=== PATIENT | male | born 1995 | race Caucasian/White ===

== ENCOUNTER 2018-01-19 07:31 | Emergency (ER) | payer OTHER ==
[2018-01-19] MEDS ORDERED: NS 1,000 ML IV ONE (07:37)
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
[2018-01-19] MEDS ORDERED: HYDROmorphONE/DILAUDID 1 MG/ML INJ ONE (07:41)
[2018-01-19] MEDS ORDERED: IOPAMIDOL (ISOVUE-300) 100 ML BTL ONE (07:42)
[2018-01-19] MEDS ORDERED: HYDROmorphONE/DILAUDID 1 MG/ML INJ IVP ONE ×2 (08:02→09:33)
[2018-01-19 08:06] LABS: PLATELET COUNT 273 10^3/uL (150-400)
[2018-01-19 08:14] LABS: INR 1.06 (0.83-1.16)
[2018-01-19 11:15] VITALS: BP 110/73
== END 2018-01-19 11:16 | disposition home or self-care (01) ==
DX: S20.212A Contusion of left front wall of thorax, initial encounter (principal); F10.920 Alcohol use, unspecified with intoxication, uncomplicated; S00.31XA Abrasion of nose, initial encounter; S50.312A Abrasion of left elbow, initial encounter; S60.512A Abrasion of left hand, initial encounter; S80.212A Abrasion, left knee, initial encounter; S30.811A Abrasion of abdominal wall, initial encounter; S20.91XA Abrasion of unspecified parts of thorax, initial encounter; E86.9 Volume depletion, unspecified; V18.4XXA Pedal cycle driver injured in noncollision transport accident in traffic accident, initial encounter; Y92.89 Other specified places as the place of occurrence of the external cause; Y99.8 Other external cause status; Y93.55 Activity, bike riding
CPT/HCPCS: 82435-PO; 82565-PO; 82947-PO; 84132-PO; 84295-PO; 84520-PO; 85014-PO; 96374; G0480; J1170; Q9967